=== PATIENT | male | born 1985 | race American Indian/Alaskan Native ===

== ENCOUNTER 2024-01-31 18:05 | Emergency (ER) | payer OTHER ==
[~2024-01-31] VITALS: Ht 170.2 cm; Wt 85.3 kg
[~2024-01-31 18:05] MED LIST: AMOCLA875 PO; CODACE30 PO; HYDACE5 PO; NAPR500 PO; OXYACE5T PO; PENVK500 PO; PROM25 PO; RXCODACET PO
[2024-01-31 20:24] VITALS: BP 129/67
== END 2024-01-31 20:37 | disposition home or self-care (01) ==
LOC: ER 18:05
DX: R10.32 Left lower quadrant pain (principal)
CPT/HCPCS: 72193; 99283-25; Q9967